=== PATIENT | female | born 1955 | race Native Hawaiian/Other Pacific Islander ===

== ENCOUNTER 2022-04-08 18:55 | Emergency (ER) | payer OTHER ==
[~2022-04-08] VITALS: Ht 160 cm; Wt 52.6 kg
[2022-04-08 19:44] LABS: PLATELET COUNT 194 K/uL (152-353)
[2022-04-08 20:17] VITALS: BP 151/69; TEMP 97.6
[2022-04-08] MEDS ORDERED: DIVALPROEX125 M1 PO (23:38)
[2022-04-08] MEDS ORDERED: ESCITALOPRAM10 MG PO (23:39)
[2022-04-08] MEDS ORDERED: QUETIAPINE50 MG PO (23:40)
[2022-04-08] MEDS ORDERED: QUETIAPINE25 MG PO (23:40)
[2022-04-08] MEDS ORDERED: LORA1TAB17 PO ×2 (23:41→23:45)
[2022-04-08] MEDS ORDERED: TRAMADOL HYDROC50 MG PO (23:44)
[2022-04-08] MEDS ORDERED: LORA2INJ21 IM (23:46)
[2022-04-08] MEDS ORDERED: TYLENOL325 MG PO (23:47)
== END 2022-04-08 20:21 | disposition still patient (30) ==
LOC: ED 18:55
PROVIDERS: Emergency Medicine
DX: F03.91 Unspecified dementia, unspecified severity, with behavioral disturbance (principal); Z11.52 Encounter for screening for COVID-19
CPT/HCPCS: 36415; 80053; 85027; 87635; 93005; 99283; U0003